=== PATIENT | male | born 1990 | race African-American/Black ===

== ENCOUNTER 2024-03-13 09:17 | Emergency (ER) | payer BC ==
[2024-03-13] MEDS ORDERED: ONDANSETRON 4 MG/2 ML VIAL ONE (09:30)
[2024-03-13] MEDS ORDERED: NA CHLORIDE 0.9% 1,000 ML ONE (09:30)
[2024-03-13 09:41] LABS: Absolute Basophils 0.1 K/uL (0-0.5); Absolute Lymphocytes (CBC) 2.1 K/uL (0.7-4.9); Absolute Monocytes 0.6 K/uL (0.1-1.3); Basophils % 0.5 % (0-1.3); Eosinophils % 0.4 % (0-4.4); Hematocrit 45.3 % (39.6-49.0); Hemoglobin 15.3 g/dL (13.6-17.9); Lymphocytes % 21.8 % (15.3-44.8); MCHC 33.9 g/dL (32.0-36.0); MCV 100.3 fL (80-100); MPV 7.3 fL (7.6-11.3); Monocytes % 6.1 % (3.3-12.3); Neutrophils % 71.2 % (41.7-73.7); Nucleated Red Blood Cells % 0.1 % (0-0); Platelets 274 thou/uL (152-406); RBC Red Blood Cell Count 4.51 M/uL (4.33-5.43); Red Cell Distribution Width 12.8 % (12.1-15.2)
[2024-03-13 10:18] LABS: Albumin 4.6 g/dL (3.4-5.0); Albumin/Globulin Ratio 1.6 (1.1-1.8); Anion Gap 16.8 mEq/L (5.0-15.0); Globulin 2.9 g/dL (2.3-3.5); Protein, Total 7.5 g/dL (6.4-8.2)
[2024-03-13 10:21] LABS: Potassium 3.8 mEq/L (3.5-5.1)
--- NOTE | 2024-03-13 10:36 | ER ---
Nurse's Notes [facility] Name: Rajinder Long Age: 33 yrs Sex: Male : 1990 Arrival Date: 03/13/2024 Time: 09:17 Bed 6 Private MD: Diagnosis: Viral gastroenteritis Presentation: 03/13 09:26 Chief complaint: Patient states: vomiting, abd pain since this morning. Coronavirus iw screen: At this time, the client does not indicate any symptoms associated with coronavirus-19. Ebola Screen: No symptoms or risks identified at this time. Initial Sepsis Screen: Does the patient meet any 2 criteria? No. Patient's initial sepsis screen is negative. Does the patient have a suspected source of infection? No. Patient's initial sepsis screen is negative. Risk Assessment: Do you want to hurt yourself or someone else? Patient reports no desire to harm self or others. Onset of symptoms was March 13, 2024. 09:26 Method Of Arrival: Ambulatory iw 09:26 Acuity: DARIAN 3 iw Historical: - Allergies: : No Known Allergies; iw - Home Meds: : None [Active]; iw - PMHx: : None; iw - PSHx: : None; iw - Immunization history:: Adult Immunizations not up to date. - Infectious Disease History:: Denies. - Social history:: Patient uses alcohol, occasionally. Smoking status: Patient denies any tobacco usage or history of. Screenin:40 [facility] ED Fall Risk Assessment (Adult) History of falling in the last 3 months, aa5 including since admission No falls in past 3 months (0 pts) Confusion or Disorientation No (0 pts) Intoxicated or Sedated No (0 pts) Impaired Gait No (0 pts) Mobility Assist Device Used No (0 pt) Altered Elimination No (0 pt) Score/Fall Risk Level 0 - 2 = Low Risk Oriented to surroundings, Maintained a safe environment, Educated pt \T\ family on fall prevention, incl call for assistance when getting out of bed. Abuse screen: Denies threats or abuse. Nutritional screening: No deficits noted. Tuberculosis screening: No symptoms or risk factors identified. Assessment: 09:30 General: Appears uncomfortable, Behavior is cooperative, restless. Pain: Denies pain. aa5 Neuro: Level of Consciousness is awake, alert, obeys commands, Oriented to person, place, time, situation. Cardiovascular: Patient's skin is warm and dry. Respiratory: Airway is patent Respiratory effort is even, unlabored, Respiratory pattern is regular, symmetrical, tachypnea. GI: Abdomen is round non-distended, Bowel sounds present X 4 quads. Abd is soft and non tender X 4 quads. Reports nausea, vomiting, since this morning. : No signs and/or symptoms were reported regarding the genitourinary system. EENT: No signs and/or symptoms were reported regarding the EENT system. Derm: Skin is dry, Skin is normal, Skin temperature is warm. Musculoskeletal: Range of motion: intact in all extremities. 09:53 Reassessment: Patient states feeling better. Reports nausea has improved, pt now aa5 resting in bed with eyes closed, pt calm. . 10:35 Reassessment: Pt drinking water. . aa5 10:37 Neuro: Level of Consciousness is awake, alert, obeys commands, Oriented to person, aa5 place, time, situation. Respiratory: Airway is patent Respiratory effort is even, unlabored, Respiratory pattern is regular, symmetrical. Derm: Skin is dry, Skin is normal, Skin temperature is warm. 10:50 Reassessment: Pt tolerated cup of water well. . aa5 Vital Signs: 09:26 BP 126 / 59; Pulse 81; Resp 16; Pulse Ox 100% on R/A; Weight 83.91 kg; Height 5 ft. 11 iw in. ; Pain 8/10; 09:30 Resp 26 S; Temp 97.5(O); aa5 09:54 Pulse 81; Resp 18 S; Pulse Ox 100% on R/A; aa5 10:30 BP 125 / 74; Pulse 65; Resp 16 S; Pulse Ox 100% on R/A; aa5 09:26 Body Mass Index 25.80 (83.91 kg, 180.34 cm) iw 09:26 Pain Scale: Adult iw ED Course: 09:20 Patient arrived in ED. mr 09:20 Annette Duncan PA-C is PHCP. sb4 09:20 Sohail Moran MD is Attending Physician. sb4 09:22 Renetta Fox, KALYN is Primary Nurse. aa5 09:27 Triage completed. iw 09:28 Arm band placed on. iw 09:30 Patient has correct armband on for positive identification. Bed in low position. Call aa5 light in reach. Side rails up X 1. Pulse ox on. NIBP on. 09:32 Initial lab(s) drawn, by me, sent to lab. Inserted saline lock: 22 gauge in right aa5 antecubital area, using aseptic technique. Blood collected. Flushed with 10 mL NS. 10:50 No provider procedures requiring assistance completed. IV discontinued, intact, aa5 bleeding controlled, No redness/swelling at site. Pressure dressing applied. Administered Medications: 09:39 Drug: Ondansetron IVP 4 mg IVP once; over 2 minutes Route: IVP; Site: right antecubital;aa5 09:53 Follow up: Response: No adverse reaction; Marked relief of symptoms aa5 09:39 Drug: NS 0.9% IV 1000 ml IV at 1 bolus Per protocol; to be given as a bolus over 60 aa5 minutes Route: IV; Rate: 1 bolus; Site: right antecubital; 10:39 Follow up: IV Status: Completed infusion; IV Intake: 1000ml aa5 Medication: 09:40 VIS not applicable for this client. aa5 Intake: 10:39 IV: 1000ml; Total: 1000ml. aa5 Outcome: 10:35 Discharge ordered by MD. sb4 10:50 Discharged to home ambulatory, aa5 10:50 Condition: improved 10:50 Discharge instructions given to patient, Instructed on discharge instructions, follow up and referral plans. medication usage, Demonstrated understanding of instructions, follow-up care, medications, Prescriptions given X 1, 10:52 Patient left the ED. iw Signatures: Crys Jj, Reg Reg mr Leta Palma RN RN iw Renetta Fox RN RN aa5 Annette Duncan PA-C PAYash sb4 Corrections: (The following items were deleted from the chart) 09:28 09:27 Social history: Smoking status: Patient reports the use of cigarette tobacco iw products, denies chronic smoking, but will smoke occasionally, iw 09:42 09:30 Temp 97.5F Oral; aa5 aa5
--- NOTE | 2024-03-13 10:37 | EDPHYS ---
Physician Documentation [facility] Name: Rajinder Early Age: 33 yrs Sex: Male : 1990 Arrival Date: 03/13/2024 Time: 09:17 Bed 6 Private MD: NAVEED Physician Sohail Moran HPI: 03/13 09:25 This 33 yrs old Black Male presents to ER via Unassigned with complaints of Vomiting. sb4 09:25 The patient presents to the emergency department with nausea, vomiting. Onset: The sb4 symptoms/episode began/occurred this morning. Possible causes: bad food exposure. The symptoms are aggravated by nothing. The symptoms are alleviated by nothing. Associated signs and symptoms: The patient has no apparent associated signs or symptoms, Pertinent negatives: abdominal pain, dysuria, GI bleeding. The patient has experienced a previous episode, many years ago. The patient has not recently seen a physician. Historical: - Allergies: : No Known Allergies; iw - Home Meds: : None [Active]; iw - PMHx: : None; iw - PSHx: : None; iw - Immunization history:: Adult Immunizations not up to date. - Infectious Disease History:: Denies. - Social history:: Patient uses alcohol, occasionally. Smoking status: Patient denies any tobacco usage or history of. ROS: 09:25 Constitutional: Negative for fever, chills, and weight loss, sb4 09:25 Abdomen/GI: Positive for nausea and vomiting, 09:25 All other systems are negative, Exam: 09:25 Head/Face: Normocephalic, atraumatic. Eyes: Extra-ocular motions intact. Periorbital sb4 areas with no swelling, redness, or edema. Cardiovascular: Regular rate and rhythm with a normal S1 and S2. Respiratory: No increased work of breathing, no retractions or nasal flaring. Skin: Warm, dry with normal turgor. Normal color with no rashes, no lesions, and no evidence of cellulitis. 09:25 Constitutional: The patient appears alert, awake, restless, uncomfortable, 09:25 Abdomen/GI: Inspection: abdomen appears normal, Bowel sounds: normal, diffuse tenderness, Vital Signs: :26 BP 126 / 59; Pulse 81; Resp 16; Pulse Ox 100% on R/A; Weight 83.91 kg; Height 5 ft. 11 iw in. ; Pain 8/10; 09:30 Resp 26 S; Temp 97.5(O); aa5 09:54 Pulse 81; Resp 18 S; Pulse Ox 100% on R/A; aa5 10:30 BP 125 / 74; Pulse 65; Resp 16 S; Pulse Ox 100% on R/A; aa5 09:26 Body Mass Index 25.80 (83.91 kg, 180.34 cm) iw 09:26 Pain Scale: Adult iw MDM: 09:22 Medical Screening Exam initiated sb4 09:56 Differential diagnosis: gastritis, viral gastroenteritis. sb4 10:35 Data reviewed: vital signs, nurses notes, lab test result(s), and as a result, I will sb4 discharge patient. Counseling: I had a detailed discussion with the patient and/or guardian regarding the historical points, exam findings, and any diagnostic results supporting the discharge/admit diagnosis, lab results, to return to the emergency department if symptoms worsen or persist or if there are any questions or concerns that arise at home. 03/13 09:25 Order name: CBC with Diff; Complete Time: 09:46 sb4 03/13 09:25 Order name: CMP; Complete Time: 10:23 sb4 03/13 09:25 Order name: Lipase; Complete Time: 10:23 sb4 03/13 09:25 Order name: IV Saline Lock; Complete Time: 09:33 sb4 03/13 09:25 Order name: Labs collected and sent; Complete Time: 09:33 sb4 03/13 09:56 Order name: PO challenge; Complete Time: 10:36 sb4 Administered Medications: 09:39 Drug: Ondansetron IVP 4 mg IVP once; over 2 minutes Route: IVP; Site: right antecubital;aa5 09:53 Follow up: Response: No adverse reaction; Marked relief of symptoms aa5 09:39 Drug: NS 0.9% IV 1000 ml IV at 1 bolus Per protocol; to be given as a bolus over 60 aa5 minutes Route: IV; Rate: 1 bolus; Site: right antecubital; 10:39 Follow up: IV Status: Completed infusion; IV Intake: 1000ml aa5 Disposition Summary: 03/13/24 10:35 Discharge Ordered Notes: Location: Home sb4 Problem: new sb4 Symptoms: have improved sb4 Condition: Stable sb4 Diagnosis - Viral gastroenteritis sb4 Followup: sb4 - With: Emergency Department - When: As needed - Reason: Worsening of condition Discharge Instructions: - Discharge Summary Sheet sb4 - Viral Gastroenteritis, Adult, [id number] sb4 Forms: - Patient Portal Instructions sb4 - Leadership Thank You Letter sb4 Prescriptions: - ondansetron HCl 4 mg Oral tablet - take 1 tablet ORAL route every 6 hours; 10 tablet; Refills: 0, Product sb4 Selection Permitted Addendum: 03/18/2024 12:50 Co-signature as Attending Physician, Sohail Moran MD I agree with the assessment and c ty plan of care. Signatures: Dispatcher [employer] EDSohail Vuong MD MD cha Williams, Irene, RN RN Renetta Mahmood RN RN Annette Hodgson, PAChristinaC PA-C sb4 Corrections: (The following items were deleted from the chart) 03/13 09:28 09:27 Social history: Smoking status: Patient reports the use of cigarette tobacco iw products, denies chronic smoking, but will smoke occasionally, iw
[2024-03-13 11:15] VITALS: BP 126/59; O2SAT 100
[2024-03-13 11:16] VITALS: TEMP 97.5
== END 2024-03-13 10:52 | disposition home or self-care (01) ==
LOC: ER 09:17
DX: A08.4 Viral intestinal infection, unspecified (principal)
CPT/HCPCS: 96361; 85025; 36415; 83690; 80053; 96374; 99284; J2405; J7030